=== PATIENT | female | born 1950 | race Caucasian/White ===

== ENCOUNTER → 2017-04-14 | Outpatient (CLI) | payer MEDICARE ==
--- NOTE | 2017-04-14 21:20 | CONS ---
CONSULTATION PRIMARY CARE PHYSICIAN: Dr. Nito Rodriguez. REFERRING PHYSICIAN: Dr. Rafa Hines A 67-year-old female patient was referred to me due to concerns of obstructive sleep apnea. The patient snores; however she does not have major hypersomnia or sleepiness during the day. No witnessed apneas. She has extensive cardiovascular disease. She has had previous CT ebony arrhythmias requiring a pacemaker insertion. She is a smoker and she has coronary artery disease, has had multiple coronary stents inserted over the years. She goes to bed around 11:30 p.m., wakes up 6:30 a.m. in the morning. No major hypersomnia or sleepiness during the day. She denies having to wake up tired. No falling asleep during day-to-day activities. No problems with concentration and memory. PAST MEDICAL HISTORY: 1. Coronary artery disease, previous coronary stent insertion. 2. Anxiety/depression. 3. Hyperlipidemia. 4. Obesity. 5. History of pacemaker insertion. SURGICAL HISTORY: Pacemaker insertion for bradycardia, cardiac catheterization insertion and multiple coronary stents, appendectomy and hysterectomy. DRUG ALLERGIES: Not known. OUTPATIENT MEDICATION LIST: Includes: 1. Aspirin. 2. Plavix. 3. Magnesium. 4. Nitroglycerin. 5. Pravastatin. 6. Citalopram. 7. Lisinopril. 8. Metoprolol and. 9. Imdur. SOCIAL HISTORY: A smoker. No history of alcohol. No history of IV drugs. FAMILY HISTORY: Negative for sleep apnea. REVIEW OF SYSTEMS: A 12-point review of systems was done. Positive findings are mentioned above in the history of present illness. BP is 139/75, pulse 74, respirations 16, temperature is 98.6. BMI is 33.1, height 4 feet 11 inches. Weight is 164. Neck size 15 inches. GENERAL APPEARANCE: Calm, comfortable. HEAD: Atraumatic, normocephalic. NECK: Supple. There is no JVD. There is no goiter or neck mass. Mallampati class III. LUNGS: Clear to auscultation. HEART: Sounds regular rate and rhythm. Normal S1, S2. No S3, S4. No murmurs. ABDOMEN: Soft, nontender. No organomegaly. EXTREMITIES: No edema. No cyanosis or clubbing. IMPRESSION: 1. Obstructive sleep apnea clinically suspected, under investigation. Overall suspicion is low. 2. Coronary artery disease with previous intervention and stenting. 3. Pacemaker insertion. 4. Bradycardias/bradyarrhythmia. 5. Anxiety/depression. 6. Hyperlipidemia. 7. Obesity. Body mass index of 33.1. PLAN: Proceed with a home sleep study to investigate this patient for any form of sleep breathing disorder and treat accordingly. TONY / ERNESTO: [id number] /
== END | disposition home or self-care (01) ==
LOC: SLEEP 14:50
PROVIDERS: ATTEND Internal Medicine Critical Care Medicine
DX: I25.10 Atherosclerotic heart disease of native coronary artery without angina pectoris (principal); E78.5 Hyperlipidemia, unspecified; F17.200 Nicotine dependence, unspecified, uncomplicated; E66.9 Obesity, unspecified; Z68.33 Body mass index [BMI] 33.0-33.9, adult; Z95.0 Presence of cardiac pacemaker; Z79.82 Long term (current) use of aspirin; Z79.02 Long term (current) use of antithrombotics/antiplatelets; Z79.899 Other long term (current) drug therapy
CPT/HCPCS: 99204; 99211